=== PATIENT | female | born 1980 | race Caucasian/White ===

== ENCOUNTER 2017-05-29 17:39 | Emergency (ER) | payer OTHER ==
[2017-05-29 17:59] VITALS: BP 110/67
[2017-05-29] MEDS ORDERED: DOXYcycline CAP(*) 100 MG PO ONE (18:09)
--- NOTE | 2017-05-29 18:09 | UC ---
Skin Complaint HPI - HPI Summary HPI Summary: Patient has had recent tick bites, has developed recent fever, joint ahces, RIZVI and now has a bullseye rash - History of Current Complaint Chief Complaint: UCSkin Time Seen by Provider: 05/29/17 18:03 Stated Complaint: RASH Hx Last Menstrual Period: 1 WEEK AGO - Allergy/Home Medications Allergies/Adverse Reactions: Allergies Allergy/AdvReac Type Severity Reaction Status Date / Time No Known Allergies Allergy Verified 05/29/17 17:59 Home Medications: Home Medications Fluticasone NASAL SPRAY 50MCG* [Flonase NASAL SPRAY 50MCG*] 05/29/17 [History] Review of Systems Constitutional: Negative Skin: Rash - bullseye on right arm Eyes: Negative ENT: Negative Respiratory: Negative Cardiovascular: Negative Gastrointestinal: Negative Genitourinary: Negative Motor: Negative Neurovascular: Negative Musculoskeletal: Arthralgia Neurological: Negative Psychological: Negative All Other Systems Reviewed And Are Negative: Yes PMH/Surg Hx/FS Hx/Imm Hx - Surgical History Surgical History: Yes Surgery Procedure, Year, and Place: DX PELVIC LAPORASCOPY - Social History Alcohol Use: None Substance Use Type: None Smoking Status (MU): Never Smoked Tobacco - Immunization History Most Recent Tetanus Shot: 2009 Physical Exam Triage Information Reviewed: Yes Appearance: Well-Appearing, Well-Nourished, Pain Distress Vital Signs: Initial Vital Signs Temp 98.3 F 05/29/17 17:56 Pulse 69 05/29/17 17:56 Resp 16 05/29/17 17:56 BP 110/67 05/29/17 17:56 Pulse Ox 99 05/29/17 17:56 Vital Signs Reviewed: Yes Eye Exam: Normal ENT Exam: Normal Dental Exam: Normal Neck exam: Normal Respiratory Exam: Normal Cardiovascular Exam: Normal Abdominal Exam: Normal Bowel Sounds: Positive: Present Musculoskeletal Exam: Normal Neurological Exam: Normal Psychological Exam: Normal Skin: Positive: rashes - bullseye rash on right arm Course/Dx - Course Course Of Treatment: hx obtained, exam performed ,meds reviewed, treated for lyme - Differential Diagnoses - Skin Complaint Differential Diagnoses: Cellulitis, Contact Dermatitis, Tick Born Illness - Diagnoses Provider Diagnoses: bullseye rash. joint pain. fever Discharge - Discharge Plan Condition: Stable Disposition: HOME Prescriptions: DOXYcycline CAP(*) [DOXYcycline 100MG CAP(*)] 100 mg PO BID #41 cap Fluconazole [Diflucan 150 MG (NF)] 150 mg PO ONCE #1 tab Patient Education Materials: Lyme Disease (ED) Referrals: Sachi Peña MD [Primary Care Provider] - Additional Instructions: 1. take the medication as prescribed. 2. Follow up as needed.
== END 2017-05-29 18:25 | disposition home or self-care (01) ==
LOC: UCEAST 17:39
DX: R21 Rash and other nonspecific skin eruption (principal); M25.50 Pain in unspecified joint; R50.9 Fever, unspecified
CPT/HCPCS: 99212; A9270-GY; G0463

== ENCOUNTER 2018-12-19 07:29 | Emergency (ER) | payer OTHER ==
[2018-12-19 07:40] VITALS: BP 117/68
--- NOTE | 2018-12-19 08:10 | UC ---
Respiratory Complaint HPI - HPI Summary HPI Summary: PATIENT COMPLAINS OF SEVERAL WEEKS OF COUGH, CONGESTION AND FATIGUE. STATES SHE GOT WORSE LAST WEEK WITH LOW-GRADE FEVER AND CHILLS. HAS SORE THROAT, EAR PAIN AND GREEN SPUTUM. COMPLAINING OF HOARSENESS AND SINUS PRESSURE. NO NAUSEA /VOMITING. - History of Current Complaint Chief Complaint: UCRespiratory Stated Complaint: SORE THROAT, EAR COMPLAINT Time Seen by Provider: 12/19/18 08:01 Hx Obtained From: Patient Hx Last Menstrual Period: 1 WEEK AGO Onset/Duration: Gradual Onset, Lasting Weeks, Still Present Timing: Constant Severity Initially: Moderate Severity Currently: Moderate Pain Intensity: 2 Pain Scale Used: 0-10 Numeric Character: Cough: Productive Aggravating Factors: Nothing Alleviating Factors: Nothing Associated Signs And Symptoms: Positive: Fever, Chills, URI, Nasal Congestion, Hoarseness, Sinus Discomfort - Allergies/Home Medications Allergies/Adverse Reactions: Allergies Allergy/AdvReac Type Severity Reaction Status Date / Time No Known Allergies Allergy Verified 12/19/18 07:39 PMH/Surg Hx/FS Hx/Imm Hx Psychological History: Anxiety, Depression - Surgical History Surgical History: Yes Surgery Procedure, Year, and Place: DX PELVIC LAPORASCOPY. HYSTERECTOMY - Family History Known Family History: Positive: Non-Contributory - Social History Alcohol Use: Rare Substance Use Type: None Smoking Status (MU): Never Smoked Tobacco - Immunization History Most Recent Tetanus Shot: 2009 Review of Systems All Other Systems Reviewed And Are Negative: Yes Constitutional: Positive: Fever, Fatigue ENT: Positive: Sore Throat, Ear Ache, Nasal Discharge, Sinus Congestion Respiratory: Positive: Cough Cardiovascular: Positive: Negative Gastrointestinal: Positive: Negative Neurological: Positive: Headache Physical Exam Triage Information Reviewed: Yes Appearance: Well-Appearing, No Pain Distress, Well-Nourished Vital Signs: Initial Vital Signs Temp 99.2 F 12/19/18 07:34 Pulse 80 12/19/18 07:34 Resp 18 12/19/18 07:34 BP 117/68 12/19/18 07:34 Pulse Ox 98 12/19/18 07:34 Vital Signs Reviewed: Yes Eyes: Positive: Conjunctiva Clear ENT: Positive: Hearing grossly normal, TMs normal Neck: Positive: Supple, Nontender, No Lymphadenopathy Respiratory Exam: Normal Cardiovascular Exam: Normal Abdomen Description: Positive: Soft Musculoskeletal: Positive: No Edema Neurological: Positive: Alert Psychological: Positive: Age Appropriate Behavior Skin: Negative: Rashes UC Diagnostic Evaluation - Laboratory O2 Sat by Pulse Oximetry: 98 Respiratory Course/Dx - Differential Dx/Diagnosis Provider Diagnosis: Acute rhinosinusitis Discharge - Sign-Out/Discharge Documenting (check all that apply): Patient Departure All imaging exams completed and their final reports reviewed: No Studies - Discharge Plan Condition: Stable Disposition: HOME Prescriptions: Amoxicillin/Clavulanate TAB* [Augmentin TAB 875*] 875 mg PO BID #20 tab Patient Education Materials: Rhinosinusitis (ED) Referrals: Sachi Peña MD [Primary Care Provider] - If Needed Additional Instructions: YOUR SYMPTOMS MAY BE VIRALLY MEDIATED BUT GIVEN THE LENGTH OF TIME YOU HAVE BEEN ILL WE WILL COVER YOU WITH ANTIBIOTICS. IF YOU START THE MEDICINE BE SURE TO TAKE IT FOR THE FULL COURSE. REST, HYDRATE, OTC MEDS NEEDED. SEEK FOLLOW- UP WITH YOUR PCP IF YOU ARE NOT IMPROVING OVER THE NEXT 1-2 WEEKS. USE OTC AFRIN FOR NASAL CONGESTION. 2 SPRAYS IN EACH NOSTRIL TWICE DAILY NEEDED. DO NOT USE FOR MORE THAN 3-4 DAYS IN A ROW TO PREVENT DEVELOPING REBOUND CONGESTION. I WOULD NOT USE YOUR FLONASE IF YOU ARE USING AFRIN. - Billing Disposition and Condition Condition: STABLE Disposition: Home
== END 2018-12-19 08:22 | disposition home or self-care (01) ==
LOC: UCEAST 07:29
DX: J01.90 Acute sinusitis, unspecified (principal); J02.9 Acute pharyngitis, unspecified
CPT/HCPCS: 99212; G0463

== ENCOUNTER 2019-05-05 11:13 | Emergency (ER) | payer OTHER ==
[2019-05-05 12:24] LABS: ABS Eosinophils 0.1 10^3/ul (0-0.6); ABS Lymphocytes 1.5 10^3/ul (1.0-4.8); ABS Monocytes 0.8 10^3/ul (0-0.8); Eosinophil % 1.3 %; Hematocrit 42 % (35-47); Hemoglobin 14.5 g/dL (12.0-16.0); Lymphocyte % 20.5 %; Mean Corpuscular HGB Conc 34 g/dL (31-36); Mean Corpuscular Hemoglobin 30 pg (27-31); Mean Corpuscular Volume 88 fL (80-97); Mean Platelet Volume 9.3 fL (7.4-10.4); Platelet Count 200 10^3/uL (150-450); Red Blood Count 4.83 10^6 /uL (3.70-4.87); Red Cell Distribution Width 12 % (10-15); White Blood Count 7.4 10^3/uL (3.5-10.8)
[2019-05-05 12:42] LABS: ALT 13 U/L (7-52); AST 18 U/L (13-39); Albumin 4.1 g/dL (3.2-5.2); Albumin/Globulin Ratio 1.4 (1-3); Alkaline Phosphatase 55 U/L (34-104); Anion Gap 4 mmol/L (2-11); BUN/Creatinine Ratio 16.4 (8-20); Blood Urea Nitrogen 12 mg/dL (6-24); CO2 Carbon Dioxide 27 mmol/L (22-32); Calcium 9.4 mg/dL (8.6-10.3); Chloride 107 mmol/L (101-111); EGFR African American 108.5 (>60); EGFR Non-African American 89.7 (>60); Glucose 86 mg/dL (70-100); Potassium 4.2 mmol/L (3.5-5.0); Sodium 138 mmol/L (135-145); Total Protein 7.1 g/dL (6.4-8.9)
[2019-05-05 12:49] LABS: HCG Pregnancy < 0.60 mIU/mL
[2019-05-05 13:51] LABS: Urine Appearance Clear; Urine Bilirubin Negative (Negative); Urine Blood Negative (Negative); Urine Color Straw; Urine Glucose Negative (Negative); Urine Ketones Negative (Negative); Urine Nitrite Negative (Negative); Urine Protein Negative (Negative); Urine Specific Gravity 1.008 (1.010-1.030); Urine Urobilinogen Negative (Negative)
--- NOTE | 2019-05-05 13:53 | ED ---
Abdominal Pain/Female - HPI Summary HPI Summary: 38 year old F presenting to [facility] with a chief complaint of intermittent, sudden onset, sharp epigastric abdominal pain radiating throughout her abdomen, lasting a couple hours each time, since 05/02/19. She does not have pain now. The patient rates the pain 0/10 in severity. Symptoms aggravated by eating. Symptoms alleviated by nothing. Patient reports nausea. Last night, patient had diarrhea. Patient denies vomiting and fever. 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 Patient has hx IBS but does not think her symptoms are due to IBS. Patient has had hysterectomy. Patient does not take any medications. Patient notes no recent diet changes, unusual meals, or trauma to the abdomen. Patient ate a piece of toast with peanut butter and tea this morning for breakfast. - History of Current Complaint Chief Complaint: EDAbdPain Stated Complaint: ABD PAIN PER PT Time Seen by Provider: 05/05/19 13:31 Hx Obtained From: Patient Hx Last Menstrual Period: hysterectomy ?: No Onset/Duration: Sudden Onset, Lasting Days - 3, Still Present Timing: Intermittent Episode Lasting - a couple of hours Severity Initially: Moderate Severity Currently: None Pain Intensity: 0 Pain Scale Used: 0-10 Numeric Location: Epigastric Radiates: Yes Radiates to: Other - diffuse abdomen Character: Sharp Aggravating Factor(s): Food Alleviating Factor(s): Nothing Associated Signs and Symptoms: Positive: Other: - nausea, diarrhea; NEGATIVE: vomiting and fever Allergies/Adverse Reactions: Allergies Allergy/AdvReac Type Severity Reaction Status Date / Time No Known Allergies Allergy Verified 05/05/19 11:25 PMH/Surg Hx/FS Hx/Imm Hx Previously Healthy: No Endocrine/Hematology History: Denies: Hx Diabetes, Hx Thyroid Disease Cardiovascular History: Denies: Hx Hypertension, Hx Pacemaker/ICD Respiratory History: Denies: Hx Asthma, Hx Chronic Obstructive Pulmonary Disease (COPD) GI History: Reports: Hx Irritable Bowel Denies: Hx Ulcer History: Denies: Hx Renal Disease Sensory History: Denies: Hx Hearing Aid Psychiatric History: Denies: Hx Panic Disorder - Cancer History Hx Chemotherapy: No Hx Radiation Therapy: No - Surgical History Surgery Procedure, Year, and Place: DX PELVIC LAPORASCOPY. HYSTERECTOMY Infectious Disease History: No Infectious Disease History: Denies: Hx Hepatitis, Hx Human Immunodeficiency Virus (HIV), Traveled Outside the [place] in Last 30 Days - Family History Known Family History: Positive: Other - both parents had gallbladders removed Negative: Cardiac Disease, Hypertension, Diabetes - Social History Alcohol Use: Rare Hx Substance Use: No Substance Use Type: Reports: None Hx Tobacco Use: No Smoking Status (MU): Never Smoked Tobacco Review of Systems Negative: Fever Positive: Abdominal Pain, Diarrhea, Nausea. Negative: Vomiting All Other Systems Reviewed And Are Negative: Yes Physical Exam - Summary Physical Exam Summary: Appearance: Well-appearing, Well-nourished, lying in bed comfortably Skin: Warm, dry, no obvious rash Eyes: sclera anicteric, no conjunctival pallor ENT: mucous membranes moist, pharynx appears normal Neck: Supple, nontender Respiratory: Clear to auscultation, no signs of respiratory distress Cardiovascular: Normal S1, S2. No murmurs. Normal distal pulses in tibial and radial bilaterally. Abdomen: Soft, nontender, normal active bowel sounds present Musculoskeletal: Normal, Strength/ROM Intact Neurological: A&Ox3, awake and alert, mentation is normal, speech is fluent and appropriate Psychiatric: affect is normal, does not appear anxious or depressed Triage Information Reviewed: Yes Vital Signs On Initial Exam: Initial Vitals Temp Pulse Resp BP Pulse Ox 98.6 F 84 16 126/78 98 05/05/19 11:22 05/05/19 11:22 05/05/19 11:22 05/05/19 11:22 05/05/19 11:22 Vital Signs Reviewed: Yes Diagnostics - Vital Signs Vital Signs Temp Pulse Resp BP Pulse Ox 05/05/19 13:27 69 111/75 100 05/05/19 13:26 68 99 05/05/19 11:22 98.6 F 84 16 126/78 98 - Laboratory Lab Results: Lab Results 05/05/19 05/05/19 Range/Units 12:17 12:17 WBC 7.4 (3.5-10.8) 10^3/uL RBC 4.83 (3.70-4.87) 10^6 /uL Hgb 14.5 (12.0-16.0) g/dL Hct 42 (35-47) % MCV 88 (80-97) fL MCH 30 (27-31) pg MCHC 34 (31-36) g/dL RDW 12 (10-15) % Plt Count 200 (150-450) 10^3/uL MPV 9.3 (7.4-10.4) fL Neut % (Auto) 66.8 % Lymph % (Auto) 20.5 % [place] % (Auto) 10.9 % Eos % (Auto) 1.3 % Baso % (Auto) 0.5 % Absolute Neuts (auto) 5.0 (1.5-7.7) 10^3/ul Absolute Lymphs (auto) 1.5 (1.0-4.8) 10^3/ul Absolute Monos (auto) 0.8 (0-0.8) 10^3/ul Absolute Eos (auto) 0.1 (0-0.6) 10^3/ul Absolute Basos (auto) 0.0 (0-0.2) 10^3/ul Absolute Nucleated RBC 0.0 10^3/ul Nucleated RBC % 0.0 Sodium 138 (135-145) mmol/L Potassium 4.2 (3.5-5.0) mmol/L Chloride 107 (101-111) mmol/L Carbon Dioxide 27 (22-32) mmol/L Anion Gap 4 (2-11) mmol/L BUN 12 (6-24) mg/dL Creatinine 0.73 (0.51-0.95) mg/dL Est GFR ( Amer) 108.5 (>60) Est GFR (Non-Af Amer) 89.7 (>60) BUN/Creatinine Ratio 16.4 (8-20) Glucose 86 (70-100) mg/dL Calcium 9.4 (8.6-10.3) mg/dL Total Bilirubin 0.50 (0.2-1.0) mg/dL AST 18 (13-39) U/L ALT 13 (7-52) U/L Alkaline Phosphatase 55 (34-104) U/L Total Protein 7.1 (6.4-8.9) g/dL Albumin 4.1 (3.2-5.2) g/dL Globulin 3.0 (2-4) g/dL Albumin/Globulin Ratio 1.4 (1-3) Lipase 11 (11.0-82.0) U/L Beta HCG, Quant < 0.60 mIU/mL Result Diagrams: 05/05/19 12:17 05/05/19 12:17 Lab Statement: Any lab studies that have been ordered have been reviewed, and results considered in the medical decision making process. - Ultrasound No standard instances Ultrasound Interpretation Completed By: Radiologist Summary of Ultrasound Findings: NO ACUTE SONOGRAPHIC PATHOLOGY OF THE VISUALIZED PORTION OF THE ABDOMEN. ED physician has reviewed this report. Re-Evaluation - Re-Evaluation First Eval Re-Evaluation Time: 16:33 Comment: Patient was given an update on plan of care. Discussed disposition plan , and she is agreeable to discharge. Abdominal Pain Fem Course/Dx - Course Course Of Treatment: 38 year old F presenting to [facility] with a chief complaint of intermittent, sudden onset, sharp mid upper abdominal pain radiating throughout her abdomen, lasting a couple hours each time, since 05/02/19. She does not have pain now. The patient rates the pain 0/10 in severity. Symptoms aggravated by eating. Symptoms alleviated by nothing. Patient reports nausea. Last night, patient had diarrhea. Patient denies vomiting and fever. 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 Patient has hx IBS but does not think her symptoms are due to IBS. Patient has had hysterectomy. Patient does not take any medications. Patient notes no recent diet changes, unusual meals, or trauma to the abdomen. Patient ate a piece of toast with peanut butter and tea this morning for breakfast. Physical exam findings: unremarkable. Test results with no significant abnormalities. US Gallbladder, per radiologist, shows NO ACUTE SONOGRAPHIC PATHOLOGY OF THE VISUALIZED PORTION OF THE ABDOMEN. Patient will be discharged with instructions to follow up from Dr. Peañ, her primary care provider, and Dr. Garcia GI, as soon as possible. The patient is agreeable with this plan. - Diagnoses Differential Diagnosis: Positive: Gall Bladder Disease, Irritable Bowel Syndrome , Pancreatitis, Peptic Ulcer Disease Provider Diagnoses: Acute abdominal pain Discharge - Sign-Out/Discharge Documenting (check all that apply): Patient Departure - Discharge Patient Received Moderate/Deep Sedation with Procedure: No - Discharge Plan Condition: Good Disposition: HOME Prescriptions: NIFEdipine CAP* [Procardia CAP*] 10 mg PO TID #50 cap Omeprazole 40 mg PO BID #50 capsule. Patient Education Materials: Acute Abdominal Pain (ED), Esophageal Spasm (ED) Referrals: Nile Garcia MD [Medical Doctor] - As Soon As Possible Sachi Peña MD [Primary Care Provider] - As Soon As Possible - Billing Disposition and Condition Condition: GOOD Disposition: Home - Attestation Statements Document Initiated by Kita: Yes Documenting Scribe: Deyanira Biggs Provider For Whom Kita is Documenting (Include Credential): Norbert Leiva MD Scribchay Attestation: IDeyanira, scribed for Norbert Leiva MD on 05/05/19 at 2202. Scribe Documentation Reviewed: Yes Provider Attestation: The documentation as recorded by the [email or web address] accurately reflects the service I personally performed and the decisions made by me, Norbert Leiva MD Status of Scribchay Document: Viewed
[2019-05-05 16:46] VITALS: BP 103/71
== END 2019-05-05 16:40 | disposition home or self-care (01) ==
LOC: ED 11:13
DX: R10.13 Epigastric pain (principal); R11.0 Nausea; R19.7 Diarrhea, unspecified
CPT/HCPCS: 36415; 76705; 80053; 81003; 83690; 84702; 85025; 99283